=== PATIENT | male | born 1955 | race African-American/Black ===

== ENCOUNTER 2016-08-01 10:48 | Emergency (ER) | payer OTHER ==
[~2016-08-01] VITALS: Ht 170.2 cm; Wt 91.1 kg
[~2016-08-01 10:48] MED LIST: AMLODIPINE BESY10 MG PO; ASPIR 8181 M1 PO; CLONAZEPAM1 MG PO; COLACE100 MG PO; COUMADIN5 MG PO; DECADRON PO; DIOVAN160 MG PO; DIOVAN80 MG PO; EFFEXOR75 MG PO; FLOMAX0.4 MG PO; HCTZ/LISINOPRIL; HYDROCHLOROTHIA25 MG PO; LOPRESSOR25 MG PO; LOVENOX100 MG/1 M SC; NORVASC5 MG PO; OMEPRAZOLE20 M1 PO; OMEPRAZOLE20 MG PO; PRILOSEC20 MG PO; REVLIMID25 MG PO; RISPERDAL2 MG PO; RISPERIDONE4 MG PO; SEROQUEL50 MG PO; TERAZOSIN HCL2 MG PO; VOLTAREN75 MG PO; ZOLOFT100 MG PO; ZOVIRAX400 MG PO
[2016-08-01 12:03] LABS: CHLORIDE 106 mEq/L (99-109); POTASSIUM 3.9 mEq/L (3.7-5.4); SODIUM 139 mEq/L (136-147)
[2016-08-01 12:04] LABS: GLUCOSE 92 mg/dL (70-99)
[2016-08-01 12:06] LABS: ANION GAP 9 MEQ/L (2-14)
[2016-08-01 12:08] LABS: GFR ESTIMATE (CALCULATED) > 59 mL/min/
[2016-08-01 12:09] LABS: TROP-I INTERPRETATION NEGATIVE; TROPONIN-I 0.03 ng/mL (0.0-0.30); UREA NITROGEN (BUN) 8 mg/dL (9-23)
[2016-08-01 12:11] LABS: INTER. NORMALIZED RATIO 7.4; PROTHROMBIN TIME 80.7 (9.2-11.2)
[2016-08-01 12:32] LABS: HEMATOCRIT 39.7 % (38.0-50.0); MCHC 32.5 G/DL (30.0-36.0); MCV 73.8 FL (86-99); MEAN PLAT.VOLUME 8.5 uM^3 (9.0-12.4); PLATELET COUNT 272 K/uL (156-360); RBC DIS.WIDTH-CV 15.3 % (11.8-14.6); RBC DIS.WIDTH-SD 39.7 % (39-53); RED BLOOD COUNT 5.38 M/uL (4.00-5.50)
[2016-08-01 13:30] VITALS: BP 152/94
[2016-08-01 13:36] LABS: WHITE BLOOD COUNT 4.3 K/uL (4.1-10.2)
== END 2016-08-01 13:46 | disposition left against medical advice (07) ==
LOC: EME 10:48
PROVIDERS: Emergency Medicine
DX: R07.9 Chest pain, unspecified (principal); Z79.01 Long term (current) use of anticoagulants; F17.200 Nicotine dependence, unspecified, uncomplicated; I25.2 Old myocardial infarction; I10 Essential (primary) hypertension; Z86.718 Personal history of other venous thrombosis and embolism; C90.00 Multiple myeloma not having achieved remission; Z79.82 Long term (current) use of aspirin
CPT/HCPCS: 71010; 80048; 84484; 85027; 85610; 93005; 99281; 99285